=== PATIENT | female | born 1990 | race Caucasian/White ===

== ENCOUNTER 2018-12-29 18:27 | Emergency (ER) | payer OTHER ==
[~2018-12-29] VITALS: Ht 188 cm; Wt 102.5 kg
[2018-12-29] MEDS ORDERED: MUPIROCIN15 GM TOP (19:17)
[2018-12-29] MEDS ORDERED: CEPHALEXIN500 MG PO (19:17)
== END 2018-12-29 19:59 | disposition home or self-care (01) ==
LOC: ER 18:27
DX: T20.24XA Burn of second degree of nose (septum), initial encounter (principal); X15.0XXA Contact with hot stove (kitchen), initial encounter; Y93.89 Activity, other specified; Y92.090 Kitchen in other non-institutional residence as the place of occurrence of the external cause; Y99.8 Other external cause status